=== PATIENT | female | born 1945 | race Caucasian/White ===

== ENCOUNTER 2017-06-30 05:20 | Emergency (ER) | payer OTHER, MEDICARE ==
[2017-06-30] MEDS ORDERED: ONDANSETRON 4 MG/2 ML VIAL IVPB ONE (05:23)
[2017-06-30] MEDS ORDERED: morphine CARPU-JECT 4 MG/1 ML DISP.SYRIN IVPUSH ONE ×2 (05:23→05:33)
--- NOTE | 2017-06-30 05:23 | PDOC ---
History of Present Illness - General Chief Complaint: Pain, Acute Stated Complaint: ABDOMINAL PAIN Time Seen by Provider: 06/30/17 05:23 History Source: Patient Exam Limitations: No Limitations - History of Present Illness Initial Comments: 06/30/17 05:27 This is a 72-year-old female who comes in complaining of left lower quadrant abdominal pain. Patient began approximately midnight. Patient has history of diverticulitis in the past with similar symptoms in the past. Patient developed some nausea shortly before coming in and vomited 1. Patient states she feels nauseous here but has not vomited here. Patient said that she vomited was bile- colored. Patient denies any fevers or chills. Patient denies any chest pain. She denies any diarrhea. PAST MEDICAL HISTORY: Diverticulitis PAST SURGICAL HISTORY: no significant history FAMILY HISTORY: no pertinant history SOCIAL HISTORY: Pt lives with family and is retired MEDICATIONS: reviewed ALLERGIES: As per nursing notes Review of Systems General: No fevers or chills, no weakness, no weight loss HEENT: No change in vision. No sore throat,. No ear pain CardioVascular: No chest pain or shortness of breath Respiratory:No cough, or wheezing. Gastrointestinal: + nausea, + vomitting, no diarrhea or constipation, No rectal bleeding Genitourinary: No dysuria, hematuria, or frequency Musculoskeletal: No joint or muscle pain or swelling Neurologic: No headache, vertigo, dizziness or loss of consciousness Psychiatric: nor depression Skin: No rashes or easy bruising Endocrine: no increased thirst or abnormal weight change Allergic: no skin or latex allergy All other systems reviewed and normal Exam: General: Well-nourished well-developed individual, no acute distress HEENT: Throat: Normal, tonsils normal, no erythema or exudate Neck: Supple, no meningeal signs, no lymphadenopathy Eyes::Pupils equal reactive and round, extraocular motion intact Chest: Nontender to palpation Cardiac: S1-S2 normal, regular rate and rhythm, no murmurs rubs or gallops Respiratory: Lungs clear to auscultation bilateral Abdomen: Soft, nondistended, normal bowel sounds, + moderately tender to palpation left lower quadrant no guarding or rebound. Extremities: Warm, dry, no cyanosis, clubbing, or edema Skin: No rashes Neuro: Alert and oriented x3, CN II - XII intact, nonfocal exam with normal strength, normal sensation, normal reflexes, normal gait, Psych: Normal mood and affect Medical decision making this is a 72-year-old female with history of diverticulitis who comes in again with left lower quadrant pain. We'll obtain a workup for diverticulitis including CBC, comp, cardiac enzymes We'll obtain a CT of the abdomen and pelvis to rule out diverticulitis or other intra-abdominal pathology We'll give her IV fluids, pain medication and nausea medication. We will reassess follow-up on the workup 06/30/17 07:00 Care of the patient was transferred to Dr. Linda at 7 AM Patient is improved after the morphine and some IV fluids and antiemetics however does get intermittent sharp brief spasms of her abdominal pain still Patient's CAT scan of her abdomen pelvis is still pending Patient's labs show a white count of 14.9 but no left shift. The chemistries are normal and the troponin is undetectable Case discussed in detail with oncoming Emergency Physician including history, physical exam and ancillary studies. Oncoming Emergency Physician has assumed care for the patient and will complete the evaluation and treatment. Patient is aware of the plan. Pt is clinically unchanged and stable. Past History - Past Medical History Allergies/Adverse Reactions: Allergies Allergy/AdvReac Type Severity Reaction Status Date / Time Penicillins Allergy Verified 06/30/17 05:22 Home Medications: Ambulatory Orders NK [No Known Home Medication] 06/30/17 ED Treatment Course - LABORATORY CBC & Chemistry Diagram: 06/30/17 05:20 06/30/17 05:20 *DC/Admit/Observation/Transfer Diagnosis at time of Disposition: Abdominal pain Qualifiers: Abdominal location: left lower quadrant Qualified Code(s): R10.32 - Left lower quadrant pain - Discharge Dispostion Condition at time of disposition: Stable - Referrals - Patient Instructions - Post Discharge Activity
[2017-06-30] MEDS ORDERED: SODIUM CHLORIDE 1,000 ML IV SCH (05:45)
[2017-06-30] MEDS ORDERED: morphine SULFATE 4 MG/ML VIAL ONE (05:47)
[2017-06-30 06:10] VITALS: TEMP 98; BMI 28.3
[2017-06-30 06:17] LABS: BASO % 0.1 % (0-2.0); EOS % 0.1 % (0-4.5); HEMATOCRIT 43.7 % (32.4-45.2); HEMOGLOBIN 14.3 GM/dL (10.7-15.3); LYMPH % 15.2 % (8-40); MCH 28.1 pg (25.7-33.7); MCHC 32.6 g/dl (32.0-36.0); MEAN CELL VOLUME 86.2 fl (80-96); MEAN PLT VOLUME 9.9 fl (7.5-11.1); MONO % 3.5 % (3.8-10.2); NEUT % 81.1 % (42.8-82.8); PLATELET COUNT 225 K/MM3 (134-434); RBC 5.07 M/mm3 (3.60-5.2); RDW 14.5 % (11.6-15.6); WHITE BLOOD COUNT 14.9 K/mm3 (4.0-10.0)
[2017-06-30 06:52] LABS: ALK PHOS 72 U/L (45-117); ANION GAP 10 (8-16); BILIRUBIN,TOTAL 0.3 mg/dL (0.2-1.0); BLOOD UREA NITROGEN 14 mg/dL (7-18); CALCIUM 8.6 mg/dL (8.5-10.1); CHLORIDE 102 mmol/L (98-107); CO2 26 mmol/L (21-32); CREATININE 0.8 mg/dL (0.55-1.02); GLUCOSE,RANDOM 155 mg/dL (74-106); POTASSIUM 4.1 mmol/L (3.5-5.1); SGOT/AST 16 U/L (15-37); SGPT/ALT 22 U/L (12-78); SODIUM 138 mmol/L (136-145); TOT PROT 7.5 g/dl (6.4-8.2)
[2017-06-30 09:25] LABS: URINE BILIRUBIN Negative (NEGATIVE); URINE GLUCOSE (UA) Negative (NEGATIVE); URINE KETONE Negative (NEGATIVE); URINE LEUK ESTERASE Negative (NEGATIVE); URINE NITRITE Negative (NEGATIVE); URINE PROTEIN Negative (NEGATIVE); URINE UROBILINOGEN 0.2 (0.2-1.0)
[2017-06-30 09:26] LABS: URINE APPEARANCE CLOUDY; URINE BLOOD 3+ (NEGATIVE); URINE COLOR YELLOW
[2017-06-30 09:57] VITALS: BP 124/68; PULSE 74
--- NOTE | 2017-06-30 09:57 | PDOC ---
*Physical Exam - Vital Signs Last Vital Signs Temp Pulse Resp BP Pulse Ox 98 F 77 16 135/79 96 06/30/17 05:20 06/30/17 06:16 06/30/17 06:16 06/30/17 06:16 06/30/17 06:16 - Physical Exam Comments: 06/30/17 09:48 She well-appearing no apparent distress Abdominal examination no significant abdominal tenderness no rebound no guarding mild left CVA tenderness to palpation. ED Treatment Course - LABORATORY CBC & Chemistry Diagram: 06/30/17 05:20 06/30/17 05:20 - ADDITIONAL ORDERS Additional order review: Laboratory Results 06/30/17 06/30/17 06/30/17 08:26 05:30 05:20 Sodium Potassium Chloride Carbon Dioxide Anion Gap BUN Creatinine Creat Clearance w eGFR Random Glucose Calcium Total Bilirubin AST ALT Alkaline Phosphatase Creatine Kinase 37 Troponin I Cancelled < 0.02 Total Protein Albumin Urine Color Yellow Urine Appearance Cloudy Urine pH 6.0 Ur Specific [place] 1.010 Urine Protein Negative Urine Glucose (UA) Negative Urine Ketones Negative Urine Blood 3+ H Urine Nitrite Negative Urine Bilirubin Negative Urine Urobilinogen 0.2 Ur Leukocyte Esterase Negative 06/30/17 05:20 Sodium 138 Potassium 4.1 Chloride 102 Carbon Dioxide 26 Anion Gap 10 BUN 14 Creatinine 0.8 Creat Clearance w eGFR > 60 Random Glucose 155 H Calcium 8.6 Total Bilirubin 0.3 AST 16 ALT 22 Alkaline Phosphatase 72 Creatine Kinase Troponin I Total Protein 7.5 Albumin 4.0 Urine Color Urine Appearance Urine pH Ur Specific [place] Urine Protein Urine Glucose (UA) Urine Ketones Urine Blood Urine Nitrite Urine Bilirubin Urine Urobilinogen Ur Leukocyte Esterase 06/30/17 05:20 RBC 5.07 MCV 86.2 MCHC 32.6 RDW 14.5 MPV 9.9 Neutrophils % 81.1 Lymphocytes % 15.2 Monocytes % 3.5 L Eosinophils % 0.1 Basophils % 0.1 - Medications Given in the ED: ED Medications Discontinued Medications Generic Name Dose Route Start Last Admin Trade Name Freq PRN Reason Stop Dose Admin Morphine Sulfate 4 mg 06/30/17 05:23 06/30/17 05:38 Morphine Injection - IVPUSH 06/30/17 05:24 4 mg ONCE ONE Administration Morphine Sulfate 4 mg 06/30/17 05:33 06/30/17 05:51 Morphine Injection - IVPUSH 06/30/17 05:34 4 mg ONCE ONE Administration Ondansetron HCl 8 mg 06/30/17 05:23 06/30/17 05:38 Zofran Injection IVPB 06/30/17 05:24 8 mg ONCE ONE Administration Medical Decision Making - Medical Decision Making 06/30/17 09:48 Revaluation: Patient signed out to me to follow up CAT scan she is status post colonoscopy last week. Her CAT scan demonstrates a 3 mm stone at the proximal left ureter causing minimal hydronephrosis On patient's laboratory analysis there was an elevated white count of 14 however a rectal temperature revealed patient to be afebrile. She is feeling much better. Her urinalysis is clean except for a few red blood cells At this time my suspicion for an infected kidney stone is low patient feels much better compared to when she came in she is tolerating fluids she has no fever We'll discharge with pain medications and very strict return instructions. Patient has repeated back to me she'll return to the emergency department for any fever nausea severe worsening pain if she feels she is getting sick or for any concerns Her primary care's office has a urologist attached. She will follow-up with them this week. Findings, the need for follow-up, strict return instructions discussed with patient. 06/30/17 18:17 *DC/Admit/Observation/Transfer Diagnosis at time of Disposition: Abdominal pain Qualifiers: Abdominal location: left lower quadrant Qualified Code(s): R10.32 - Left lower quadrant pain - Discharge Dispostion Disposition: HOME Condition at time of disposition: Stable - Prescriptions Prescriptions: Tamsulosin HCl [Flomax] 0.4 mg PO DAILY #5 cap.er.24h traMADol HCL [Ultram -] 50 mg PO TID #6 tablet MDD 3 - Referrals Referrals: David Oconnor MD [Staff Physician] - - Patient Instructions Printed Discharge Instructions: Kidney Stones -- Adult, Smoking Cessation Additional Instructions: Drink plenty of fluids. Take Tylenol Motrin as directed on package as needed for pain. Tramadol for more severe pain only as directed. Take Flomax at night as directed on package. When urinating urinate through a urine strainer. Follow- up with either your urologist or with Dr. [place] urology. Return to the emergency department immediately for any fever chills vomiting severe uncontrollable pain or for any concerns. - Post Discharge Activity Forms/Work/School Notes: Back to Work
[2017-06-30 11:13] LABS: EPI CELLS FEW /HPF; URINE RBC 20-30 /hpf (0-3)
[2017-06-30 11:14] LABS: URINE BACTERIA NONE SEEN /hpf (NEGATIVE)
== END 2017-06-30 10:03 | disposition home or self-care (01) ==
LOC: FER 05:20
PROC: 3E0333Z Introduction of Anti-inflammatory into Peripheral Vein, Percutaneous Approach (ICD-10-PCS; principal; 2017-06-30)
PROC: 3E033GC Introduction of Other Therapeutic Substance into Peripheral Vein, Percutaneous Approach (ICD-10-PCS; 2017-06-30)
PROC: 3E0337Z Introduction of Electrolytic and Water Balance Substance into Peripheral Vein, Percutaneous Approach (ICD-10-PCS; 2017-06-30)
DX: R10.32 Left lower quadrant pain (principal); Z87.19 Personal history of other diseases of the digestive system
CPT/HCPCS: 36415; 74177-TC; 80053; 81003; 81015; 82550; 84484; 85025; 87086; 96374; 96375; 96376; 99283-25